=== PATIENT | female | born 1975 | race Caucasian/White ===

== ENCOUNTER 2017-01-23 13:50 | Inpatient (IN) | payer OTHER ==
[~2017-01-23] VITALS: Ht 162.6 cm; Wt 87.6 kg
[~2017-01-23 13:50] MED LIST: NOCURR
[2017-01-23 19:30] VITALS: BP 126/86
[2017-01-23] MEDS ORDERED: HYDROCORTISONE 2.5% 30 GM OINTMENT TP PRN (21:45)
[2017-01-23 21:50] VITALS: BP 132/92
[2017-01-23] MEDS: ZOLPIDEM TARTRATE 10 MG TABLET PO PRN (21:55)
[2017-01-23] MEDS: LORazepam 2 MG TABLET PO PRN (21:55)
[2017-01-23] MEDS ORDERED: PNEUMOCOCCAL VACCINE POLYVALENT 0.5 ML VIAL [PPSV23] IM ONE (22:00)
[2017-01-24] MEDS: CEPHALEXIN MONOHYDRATE 500 MG CAPSULE PO SCH ×3 (00:15→12:21)
[2017-01-24 06:50] VITALS: BP 139/90
[2017-01-24] MEDS: ACYCLOVIR 200 MG CAPSULE PO SCH ×3 (08:14→17:13)
[2017-01-24] MEDS: BACITRACIN 28.4 GM OINTMENT TP SCH ×3 (08:15→17:13)
[2017-01-24] MEDS: LORazepam 2 MG TABLET PO PRN ×2 (08:15→13:15)
[2017-01-24 08:43] VITALS: BP 126/71
[2017-01-24 09:18] LABS: BASOPHILS # (AUTO) 0.03 K/uL (0.00-0.20); BASOPHILS % (AUTO) 0.3 % (0.0-2.0); EOSINOPHILS # (AUTO) 0.25 K/uL (0.00-0.70); HEMATOCRIT 44.2 % (36-46); HEMOGLOBIN 14.8 g/dL (12.0-16.0); LYMPHOCYTES # (AUTO) 3.1 K/uL (1.0-4.8); LYMPHOCYTES % (AUTO) 33.9 % (22.0-44.0); MEAN CORPUSCULAR HEMOGLOBIN 30.8 pg (26.0-34.0); MEAN CORPUSCULAR HGB CONC 33.6 G/dL (31.0-37.0); MEAN CORPUSCULAR VOLUME 92 fL (80-100); MONOCYTES # (AUTO) 0.7 K/uL (0.1-1.0); MONOCYTES % (AUTO) 7.9 % (2.0-9.0); PLATELET COUNT (AUTO) 150 K/uL (150-450); RED BLOOD CELL COUNT(AUTO) 4.82 MIL/uL (4.00-5.20); RED CELL DISTRIBUTION WIDTH 14.8 % (11.5-14.5)
[2017-01-24 09:38] LABS: HEMOGLOBIN A1C 5.6 % (4.5-6.2)
[2017-01-24 09:39] LABS: APPEARANCE,URINE TURBID (CLEAR); GLUCOSE, URINE (UA) NEGATIVE (NEGATIVE); KETONES,URINE TRACE mg/dL (NEGATIVE); LEUKOCYTE ESTERASE ,URINE LARGE (NEGATIVE); OCCULT BLOOD,URINE NEGATIVE (NEGATIVE); PROTEIN,URINE POS 1+ (NEGATIVE)
[2017-01-24 09:42] LABS: ADD UA MICROSCOPIC YES
[2017-01-24 09:54] LABS: AMORPHOUS SEDIMENT,UR Many /LPF (None Seen); CALCIUM OXALATE CRYSTALS,UR Moderate /LPF (None Seen); SQUAMOUS EPITHELIAL CELL,UR Few /LPF (None Seen)
[2017-01-24 10:07] LABS: ALANINE AMINOTRANSFERASE 190 U/L (12-78); ALBUMIN 3.9 g/dL (3.4-5.0); ANION GAP 11 mmol/L (8-16); ASPARTATE AMINOTRANSFERASE 182 U/L (15-37); BILIRUBIN,TOTAL 1.5 mg/dL (0.1-1.0); CALCIUM, TOTAL 9.6 mg/dL (8.8-10.5); CARBON DIOXIDE 29 mmol/L (22-29); CHLORIDE 98 mmol/L (98-107); CHOL/HDL RATIO 7.5 (3.9-5.7); GLOMERULAR FILTR. RATE CALC > 60 mL/min (>60); POTASSIUM 3.5 mmol/L (3.5-5.1); SODIUM SERUM 138 mmol/L (136-145); THYROID STIMULATING HORMONE 5.19 uIU/mL (0.36-3.74); TOTAL PROTEIN, SERUM 8.1 g/dL (6.4-8.2); UREA NITROGEN, BLOOD 10 mg/dL (7-18)
[2017-01-24 16:43] VITALS: BP 137/88
[2017-01-24] MEDS: ZOLPIDEM TARTRATE 10 MG TABLET PO PRN (20:50)
[2017-01-24] MEDS ORDERED: MIRTAZAPINE 15 MG TABLET PO SCH (21:00)
[2017-01-25 06:12] VITALS: BP 118/72
[2017-01-25 08:32] VITALS: BP 128/89
[2017-01-25] MEDS: LORazepam 2 MG TABLET PO PRN (08:56)
[2017-01-25] MEDS: ACYCLOVIR 200 MG CAPSULE PO SCH ×2 (08:56→12:29)
[2017-01-25] MEDS: GABAPENTIN 300 MG CAPSULE PO SCH ×2 (08:57→12:29)
[2017-01-25] MEDS ORDERED: LEVOFLOXACIN 500 MG TABLET PO SCH (09:00)
[2017-01-25] MEDS ORDERED: GABA-531 PO (09:11)
[2017-01-25] MEDS ORDERED: MIRT15 PO (09:11)
[2017-01-25] MEDS ORDERED: LEVO500 PO (09:12)
[2017-01-25] MEDS ORDERED: ACYC200C PO (09:13)
[2017-01-25] MEDS ORDERED: BACI30OI10 TP (09:14)
[2017-01-25] MEDS: BACITRACIN 28.4 GM OINTMENT TP SCH ×2 (10:06→12:37)
== END 2017-01-25 12:20 | disposition home or self-care (01) | DRG 885 ==
LOC: B3A 19:05 → B2X 01-24 16:32
PROVIDERS: ADMIT Psychiatry & Neurology Child & Adolescent Psychiatry; ATTEND Psychiatry & Neurology Child & Adolescent Psychiatry
PROC: 3E0234Z Introduction of Serum, Toxoid and Vaccine into Muscle, Percutaneous Approach (ICD-10-PCS; principal; 2017-01-23)
DX: F29 Unspecified psychosis not due to a substance or known physiological condition (principal); N39.0 Urinary tract infection, site not specified; Z23 Encounter for immunization; E03.9 Hypothyroidism, unspecified; R79.89 Other specified abnormal findings of blood chemistry; E78.5 Hyperlipidemia, unspecified; F10.20 Alcohol dependence, uncomplicated; F15.90 Other stimulant use, unspecified, uncomplicated; F39 Unspecified mood [affective] disorder; I10 Essential (primary) hypertension; L30.9 Dermatitis, unspecified; Z82.49 Family history of ischemic heart disease and other diseases of the circulatory system; Z82.5 Family history of asthma and other chronic lower respiratory diseases; Z88.3 Allergy status to other anti-infective agents; Z71.41 Alcohol abuse counseling and surveillance of alcoholic; Z81.1 Family history of alcohol abuse and dependence
CPT/HCPCS: 83036; 84439; 84443; 87081; 87086; 90471